=== PATIENT | female | born 1965 | race Caucasian/White ===

== ENCOUNTER 2019-12-18 08:00 | Outpatient (CLI) | payer OTHER | END 2019-12-18 23:59 | disposition home or self-care (01) | LOC: LAB.R 08:00 | PROVIDERS: ATTEND Emergency Medicine | DX: J02.9 Acute pharyngitis, unspecified (principal); J06.9 Acute upper respiratory infection, unspecified; Z20.828 Contact with and (suspected) exposure to other viral communicable diseases | CPT/HCPCS: 87070 ==

== ENCOUNTER 2020-10-05 08:00 | Outpatient (CLI) | payer OTHER ==
--- NOTE | 2020-10-05 11:21 | XRAY Report ---
PROCEDURE: Sacrum/Coccyx INDICATIONS: SACRUM COCCYX PAIN TECHNIQUE: 3 views of the sacrum and coccyx acquired. COMPARISON: 3 FINDINGS: Bones: No fractures or dislocations. No suspicious bony lesions. Soft tissues: Visualized bowel gas pattern is normal. No suspicious soft tissue densities. IMPRESSION: No visualized acute fracture or dislocation. However, occult injury cannot be excluded. Recommend anu rt interval imaging follow-up in 7-10 days as clinically indicated for additional evaluation. Soft tissue evaluation is markedly limited. If that remains of clinical concern, CT is recommended. Reviewed by: Rashmi Hernandez MD on 10/05/2020 11:20 AM PDT Approved by: Rashmi Hernandez MD on 10/05/2020 11:20 AM PDT Station ID: [id number]
== END 2020-10-05 23:59 | disposition home or self-care (01) ==
LOC: DI.S 08:00
PROVIDERS: ATTEND Physician Assistant Medical
DX: M53.3 Sacrococcygeal disorders, not elsewhere classified (principal)

== ENCOUNTER 2020-10-20 11:44 | Outpatient (CLI) | payer OTHER ==
[2020-10-20] MEDS ORDERED: IOPAMIDOL-300 100 ML VIAL ONE (12:00)
[2020-10-20] MEDS ORDERED: IOPAMIDOL-300 100 ML VIAL IVP ONE (12:13)
--- NOTE | 2020-10-20 12:28 | CT Report ---
PROCEDURE: LUMBAR SPINE W INDICATIONS: DISORDER OF SACRUM; DISORDER OF COCCYX CONTRAST: IV CONTRAST: Isovue 300 ml: 100 PO CONTRAST: *NO PO CONTRAST TECHNIQUE: After the administration of intravenous Isovue contrast, 3 mm thick sections acquired from the T12 le demetrio to the sacrum. Sagittal and coronal reformats were constructed. For radiation dose reduction, t he following was used: automated exposure control, adjustment of mA and/or kV according to patient s ize. COMPARISON: None. FINDINGS: There is normal alignment of the sacral and coccygeal segments with no evidence of fracture or sublux ation/dislocation. The sacrococcygeal anatomy is a type II based on the classification system propose d by Srinivas and Krystle. There is no significant degenerative change at the sacrococcygeal frank ction, nor are there appreciable inflammatory findings in the adjacent soft tissues. Normal lumbar vertebral body height and alignment. Prominent Schmorl's node in the superior L4 endpla te. Mild facet arthropathy from L3-L4 through L5-S1. No spinal canal or neural foraminal stenosis loida ntified. There is no suspicious lytic or blastic osseous lesion at any level. The included soft tissues are un remarkable. IMPRESSION: Normal anatomy of the coccyx and sacrococcygeal junction with no imaging explanation for coccydynia. Reviewed by: Shlomo Quinones MD on 10/20/2020 12:27 PM PDT Approved by: Shlomo Quinones MD on 10/20/2020 12:27 PM PDT Station ID: [id number]
== END 2020-10-20 11:45 | disposition home or self-care (01) ==
LOC: DI 11:44
PROVIDERS: ATTEND Physician Assistant
DX: M53.3 Sacrococcygeal disorders, not elsewhere classified (principal)
CPT/HCPCS: 72132; Q9967

== ENCOUNTER 2020-10-27 08:45 | Outpatient (CLI) | payer OTHER ==
[2020-10-27 14:28] LABS: BASOPHILS % (AUTO) 0.5 %; EOSINOPHILS # (AUTO) 0.1 10^3/uL (0.0-0.7); EOSINOPHILS % (AUTO) 2.7 %; HCT - HEMATOCRIT 43.1 % (37.0-47.0); HGB - HEMOGLOBIN 13.7 g/dL (12.0-16.0); LYMPHOCYTES # (AUTO) 1.4 10^3/uL (1.5-3.5); LYMPHOCYTES % (AUTO) 37.9 %; MEAN CORPUSCULAR HEMOGLOBIN 30.6 pg (27.0-31.0); MEAN CORPUSCULAR HGB CONC 31.8 g/dL (32.0-36.0); MEAN CORPUSCULAR VOLUME 96.2 fL (81.0-99.0); MONOCYTES # (AUTO) 0.4 10^3/uL (0.0-1.0); MONOCYTES % (AUTO) 11.4 %; NEUTROPHILS # (AUTO) 1.8 10^3/uL (1.5-6.6); NEUTROPHILS % (AUTO) 47.2 %; PLT - PLATELET COUNT 253 10^3/uL (130-450); RED BLOOD COUNT 4.48 10^6/uL (4.20-5.40); RED CELL DISTRIBUTION WIDTH 13.1 % (12.0-15.0); WHITE BLOOD COUNT 3.8 x10^3/uL (4.8-10.8)
[2020-10-27 14:51] LABS: ALBUMIN 4.8 g/dL (3.2-5.5); ALBUMIN/GLOBULIN RATIO 2.1 (1.0-2.2); ALKALINE PHOSPHATASE 43 IU/L (42-121); ALT ALANINE AMINOTRANSFERASE 26 IU/L (10-60); AST ASPARTATE AMINOTRANSFERASE 27 IU/L (10-42); BILIRUBIN,TOTAL 0.6 mg/dL (0.2-1.0); BUN - BLOOD UREA NITROGEN 20 mg/dL (6-20); CALCIUM 9.6 mg/dL (8.5-10.3); CARBON DIOXIDE - CO2 26 mmol/L (21-32); CHLORIDE 108 mmol/L (101-111); CHOLESTEROL 255 mg/dL; CREATININE 0.7 mg/dL (0.4-1.0); GFR - MDRD 86 (>89); GLUCOSE 106 mg/dL (70-100); HDL CHOLESTEROL 85 mg/dL; LDL CHOLESTEROL,CALCULATED 158 mg/dL; LDL/HDL RATIO 1.9 (<4.4); POTASSIUM 4.1 mmol/L (3.5-5.0); SODIUM 141 mmol/L (135-145); TOTAL PROTEIN 7.1 g/dL (6.7-8.2); TRIGLYCERIDES 58 mg/dL; VLDL CHOLESTEROL 12 mg/dL
[2020-10-27 14:59] LABS: THYROID STIMULATING HORMONE 1.51 uIU/mL (0.34-5.60)
== END 2020-10-27 08:46 | disposition home or self-care (01) ==
LOC: LAB.S 08:45
PROVIDERS: ATTEND Physician Assistant
DX: Z00.00 Encounter for general adult medical examination without abnormal findings (principal); Z79.899 Other long term (current) drug therapy; F33.9 Major depressive disorder, recurrent, unspecified
CPT/HCPCS: 36415; 80053; 80061; 83721; 84443; 85025

== ENCOUNTER 2021-01-12 16:22 | Outpatient (CLI) | payer OTHER ==
[2021-01-15 17:11] LABS: HIV AG/AB 4TH GEN NON-REACTIVE (NON-REACTIVE)
== END 2021-01-12 16:23 | disposition home or self-care (01) ==
LOC: LAB.S 16:22
PROVIDERS: ATTEND Registered Nurse
DX: N76.0 Acute vaginitis (principal)
CPT/HCPCS: 36415; 81599; 86592; 87389

== ENCOUNTER 2022-04-09 14:59 | Outpatient (CLI) | payer OTHER ==
--- NOTE | 2022-04-09 17:22 | Ultrasound Report ---
PROCEDURE: Pelvic Complete INDICATIONS: PELVIC PAIN TECHNIQUE: Real-time transabdominal scanning was performed of the pelvic organs, with image documentation. COMPARISON: None FINDINGS: Uterus: Hysterectomy. Ovaries: Not well seen. IMPRESSION: Limited transabdominal images were performed of the pelvis. No gross sonographic abnorma lity is identified. Hysterectomy. Consider repeat ultrasound or MRI if there is further clinical conc karey. Reviewed by: Papa Rowland MD on 04/09/2022 5:21 PM PST Approved by: Papa Rowland MD on 04/09/2022 5:21 PM PST Station ID: [id number]
== END 2022-04-09 15:00 | disposition home or self-care (01) ==
LOC: DI 14:59
PROVIDERS: ATTEND Nurse Practitioner
DX: R10.2 Pelvic and perineal pain (principal); Z90.710 Acquired absence of both cervix and uterus

== ENCOUNTER 2022-12-03 09:22 | Outpatient (CLI) | payer OTHER ==
[2022-12-03 14:41] LABS: BASOPHILS % (AUTO) 0.5 %; EOSINOPHILS # (AUTO) 0.1 10^3/uL (0.0-0.7); EOSINOPHILS % (AUTO) 1.5 %; HCT - HEMATOCRIT 42.6 % (37.0-47.0); HGB - HEMOGLOBIN 13.6 g/dL (12.0-16.0); LYMPHOCYTES # (AUTO) 1.5 10^3/uL (1.5-3.5); LYMPHOCYTES % (AUTO) 36.7 %; MEAN CORPUSCULAR HEMOGLOBIN 30.8 pg (27.0-31.0); MEAN CORPUSCULAR HGB CONC 31.9 g/dL (32.0-36.0); MEAN CORPUSCULAR VOLUME 96.4 fL (81.0-99.0); MEAN PLATELET VOLUME 11.6 fL (7.9-10.8); MONOCYTES # (AUTO) 0.4 10^3/uL (0.0-1.0); MONOCYTES % (AUTO) 11.1 %; NEUTROPHILS % (AUTO) 49.9 %; PLT - PLATELET COUNT 239 10^3/uL (130-450); RED BLOOD COUNT 4.42 10^6/uL (4.20-5.40)
[2022-12-03 15:26] LABS: ALBUMIN 4.8 g/dL (3.2-5.5); ALBUMIN/GLOBULIN RATIO 2.4 (1.0-2.2); ALKALINE PHOSPHATASE 48 IU/L (42-121); ALT ALANINE AMINOTRANSFERASE 35 IU/L (10-60); AST ASPARTATE AMINOTRANSFERASE 28 IU/L (10-42); BILIRUBIN,TOTAL 0.4 mg/dL (0.2-1.0); BUN - BLOOD UREA NITROGEN 15 mg/dL (6-20); CARBON DIOXIDE - CO2 30 mmol/L (21-32); CHLORIDE 107 mmol/L (101-111); CHOL/HDL RATIO 2.6 (<4.4); CHOLESTEROL 227 mg/dL; CREATININE 0.7 mg/dL (0.6-1.3); GFR - MDRD 86 (>89); GLUCOSE 118 mg/dL (74-104); HDL CHOLESTEROL 88 mg/dL; LDL CHOLESTEROL,CALCULATED 129 mg/dL; LDL/HDL RATIO 1.5 (<4.4); POTASSIUM 4.3 mmol/L (3.5-4.5); SODIUM 141 mmol/L (135-145); TOTAL PROTEIN 6.8 g/dL (6.4-8.9); TRIGLYCERIDES 50 mg/dL (48-352); VLDL CHOLESTEROL 10 mg/dL
[2022-12-03 15:30] LABS: THYROID STIMULATING HORMONE 1.34 uIU/mL (0.34-5.60)
== END 2022-12-03 09:23 | disposition home or self-care (01) ==
LOC: LAB.S 09:22
PROVIDERS: ATTEND Internal Medicine
DX: Z00.00 Encounter for general adult medical examination without abnormal findings (principal); Z79.899 Other long term (current) drug therapy; F33.9 Major depressive disorder, recurrent, unspecified; M53.3 Sacrococcygeal disorders, not elsewhere classified
CPT/HCPCS: 36415; 80053; 80061; 82607; 83721; 84443; 85025

== ENCOUNTER 2023-04-29 12:28 | Outpatient (CLI) | payer OTHER ==
[2023-04-29 16:22] LABS: CHOL/HDL RATIO 2.6 (<4.4); CHOLESTEROL 208 mg/dL; HDL CHOLESTEROL 79 mg/dL; LDL CHOLESTEROL,CALCULATED 119 mg/dL; LDL/HDL RATIO 1.5 (<4.4); TRIGLYCERIDES 49 mg/dL (48-352); VLDL CHOLESTEROL 10 mg/dL
== END 2023-04-29 12:29 | disposition home or self-care (01) ==
LOC: LAB.S 12:28
PROVIDERS: ATTEND Registered Nurse
DX: Z13.220 Encounter for screening for lipoid disorders (principal)
CPT/HCPCS: 36415; 80061; 83721

== ENCOUNTER 2023-05-14 13:09 | Outpatient (CLI) | payer OTHER ==
--- NOTE | 2023-05-23 09:44 | Mammography Report ---
BILATERAL DIGITAL SCREENING MAMMOGRAM 3D/2D WITH EXAGGERATED CC: 05/14/2023 CLINICAL: Routine screening. Comparison is made to exams dated: 08/04/2017 mammogram, 03/28/2015 mammogram, and 03/23/2014 mammogram - [facility]. Both breasts are heterogeneously dense, which may obscure small masses (category c / 51-75% glandular tissue). No significant masses, calcifications, or other findings are seen in either breast. There has been no significant interval change. IMPRESSION: NEGATIVE There is no mammographic evidence of malignancy. A 1 year screening mammogram is recommended. Based on the Tyrer Cuzick model (a risk assessment model) the patient's lifetime risk is 13.4% and he r 10 year risk is 5.5%. According to the ACR, ACS, and NCCN guidelines, an annual breast MRI exam jasmyne ng with mammogram is recommended if the patient's lifetime risk is 20% or greater. This exam was interpreted at Station ID: [id number]. NOTE: For mammograms, a report in lay terms will be sent to the patient. Approximately 15% of breast malignancies will not be visualized mammographically. In the management of a palpable breast mass, a negative mammogram must not discourage biopsy of a clinically suspicious lesion. Electronically Signed By: Tad spivey/delta:05/22/2023 10:57:06 letter sent: No_Letter ACR BI-RADS Category 1: Negative 3341F PARENCHYMAL PATTERN: (D) - The breast(s) demonstrate(s) heterogeneously dense fibroglandular shirlene winchester. BI-RADS CATEGORY: (1) - 1 Mammogram [id number] 1 year screening LATERALITY: (B)
== END 2023-05-14 13:10 | disposition home or self-care (01) ==
LOC: DI.S 13:09
PROVIDERS: ATTEND Registered Nurse
DX: Z12.31 Encounter for screening mammogram for malignant neoplasm of breast (principal); R92.333 Mammographic heterogeneous density, bilateral breasts

== ENCOUNTER 2023-06-25 14:21 | Outpatient (CLI) | payer OTHER ==
--- NOTE | 2023-06-25 20:14 | DEXA Report ---
PROCEDURE: Dexa Spine and/or Hip INDICATIONS: POST MENOPAUSAL TECHNIQUE: Dual energy x-ray absorptiometry (DEXA) was performed in the regions detailed below. COMPARISON: None. FINDINGS: Lumbar Spine: Bone Mineral Density 0.993 g/cm/cm,T score -1.6. Osteopenia Left Femoral Neck: Bone Mineral Density 0.691 g/cm/cm, T score -2.5. Osteoporosis Left Total Hip: Bone Mineral Density 0.622 g/cm/cm,T score -3.1. Osteoporosis (T score greater or equal to -1.0: NORMAL) (T score from -1.1 to -2.4: OSTEOPENIA) (T score less than or equal to -2.5 to: OSTEOPOROSIS) IMPRESSION: Osteoporosis Patients with diagnosis of osteoporosis or osteopenia should have regular bone mineral density assess ment. For those eligible for Medicare, routine testing is allowed once every 2 years. Testing frequ ency can be increased for patients who have rapidly progressing disease or for those who are receivin g medical therapy to restore bone mass. Reviewed by: Moses Corbin MD on 06/25/2023 7:13 PM ROBERT Approved by: Moses Corbin MD on 06/25/2023 7:13 PM ROBERT Station ID: [id number]
== END 2023-06-25 14:22 | disposition home or self-care (01) ==
LOC: DI 14:21
PROVIDERS: ATTEND Registered Nurse
DX: M81.0 Age-related osteoporosis without current pathological fracture (principal); Z78.0 Asymptomatic menopausal state

== ENCOUNTER 2023-07-31 08:20 | Outpatient (CLI) | payer OTHER ==
[2023-07-31 14:47] LABS: BASOPHILS % (AUTO) 0.3 %; EOSINOPHILS # (AUTO) 0.1 10^3/uL (0.0-0.7); EOSINOPHILS % (AUTO) 1.4 %; HGB - HEMOGLOBIN 13.1 g/dL (12.0-16.0); LYMPHOCYTES # (AUTO) 1.2 10^3/uL (1.5-3.5); LYMPHOCYTES % (AUTO) 32.6 %; MEAN CORPUSCULAR HEMOGLOBIN 30.9 pg (27.0-31.0); MEAN CORPUSCULAR HGB CONC 32.8 g/dL (32.0-36.0); MEAN CORPUSCULAR VOLUME 94.3 fL (81.0-99.0); MEAN PLATELET VOLUME 11.6 fL (7.9-10.8); MONOCYTES # (AUTO) 0.4 10^3/uL (0.0-1.0); MONOCYTES % (AUTO) 10.5 %; NEUTROPHILS # (AUTO) 1.9 10^3/uL (1.5-6.6); NEUTROPHILS % (AUTO) 54.6 %; PLT - PLATELET COUNT 218 10^3/uL (130-450); RED BLOOD COUNT 4.24 10^6/uL (4.20-5.40); WHITE BLOOD COUNT 3.5 x10^3/uL (4.8-10.8)
[2023-07-31 15:24] LABS: ALBUMIN 4.6 g/dL (3.2-5.5); ALBUMIN/GLOBULIN RATIO 2.2 (1.0-2.2); ALKALINE PHOSPHATASE 43 IU/L (42-121); ALT ALANINE AMINOTRANSFERASE 21 IU/L (10-60); AST ASPARTATE AMINOTRANSFERASE 21 IU/L (10-42); BILIRUBIN,TOTAL 0.6 mg/dL (0.2-1.0); BUN - BLOOD UREA NITROGEN 20 mg/dL (6-20); CARBON DIOXIDE - CO2 25 mmol/L (21-32); CHLORIDE 108 mmol/L (101-111); CHOL/HDL RATIO 2.8 (<4.4); CHOLESTEROL 218 mg/dL; CREATININE 0.7 mg/dL (0.6-1.3); GFR - MDRD 85 (>89); GLUCOSE 95 mg/dL (74-104); HDL CHOLESTEROL 77 mg/dL; LDL CHOLESTEROL,CALCULATED 130 mg/dL; LDL/HDL RATIO 1.7 (<4.4); POTASSIUM 3.9 mmol/L (3.5-4.5); SODIUM 141 mmol/L (135-145); TOTAL PROTEIN 6.7 g/dL (6.4-8.9); TRIGLYCERIDES 54 mg/dL (48-352); VLDL CHOLESTEROL 11 mg/dL
[2023-07-31 15:39] LABS: PROLACTIN 7.14 ng/mL
[2023-08-01 04:09] LABS: IMMUNOGLOBULIN A (IGA) 51 mg/dL (87-352); IMMUNOGLOBULIN G (IGG) 521 mg/dL (586-1602); IMMUNOGLOBULIN M (IGM) 36 mg/dL (26-217)
[2023-08-01 07:10] LABS: VITAMIN D 25-HYDROXY 58.5 ng/mL (30.0-100.0)
[2023-08-01 08:12] LABS: ESTRADIOL <5.0 pg/mL (0.0-54.7); PROGESTERONE 0.5 ng/mL (.)
[2023-08-01 20:08] LABS: T-TRANSGLUTAMINASE (TTG) IGA <2 U/mL (0-3)
== END 2023-07-31 08:21 | disposition home or self-care (01) ==
LOC: LAB.S 08:20
PROVIDERS: ATTEND Registered Nurse
DX: M81.0 Age-related osteoporosis without current pathological fracture (principal); Z13.228 Encounter for screening for other metabolic disorders; Z13.220 Encounter for screening for lipoid disorders; Z13.29 Encounter for screening for other suspected endocrine disorder; Z13.0 Encounter for screening for diseases of the blood and blood-forming organs and certain disorders involving the immune mechanism
CPT/HCPCS: 36415; 80053; 80061; 82306; 82670; 82677; 82784; 83001; 83002; 83721; 83970; 84144; 84146; 84270; 84402; 84403; 84443; 85025; 86364

== ENCOUNTER 2023-08-01 08:00 | Outpatient (CLI) | payer OTHER ==
[2023-08-03 06:08] LABS: CALCIUM URINE 10.1 mg/dL (Not Estab.)
== END 2023-08-01 23:59 | disposition home or self-care (01) ==
LOC: LAB.S 08:00
PROVIDERS: ATTEND Registered Nurse
DX: M81.0 Age-related osteoporosis without current pathological fracture (principal)
CPT/HCPCS: 82340

== ENCOUNTER 2023-09-10 11:46 | Outpatient (CLI) | payer OTHER ==
[2023-09-10 15:02] LABS: BASOPHILS % (AUTO) 0.4 %; EOSINOPHILS % (AUTO) 0.6 %; HCT - HEMATOCRIT 41.8 % (37.0-47.0); HGB - HEMOGLOBIN 13.5 g/dL (12.0-16.0); LYMPHOCYTES % (AUTO) 20.3 %; MEAN CORPUSCULAR HGB CONC 32.3 g/dL (32.0-36.0); MEAN CORPUSCULAR VOLUME 95.9 fL (81.0-99.0); MEAN PLATELET VOLUME 11.7 fL (7.9-10.8); MONOCYTES # (AUTO) 0.5 10^3/uL (0.0-1.0); MONOCYTES % (AUTO) 10.7 %; NEUTROPHILS # (AUTO) 3.3 10^3/uL (1.5-6.6); NEUTROPHILS % (AUTO) 67.8 %; PLT - PLATELET COUNT 220 10^3/uL (130-450); RED BLOOD COUNT 4.36 10^6/uL (4.20-5.40); RED CELL DISTRIBUTION WIDTH 13.1 % (12.0-15.0); WHITE BLOOD COUNT 4.9 x10^3/uL (4.8-10.8)
[2023-09-10 16:03] LABS: CALCIUM 10.1 mg/dL (8.5-10.3); POTASSIUM 4.1 mmol/L (3.5-4.5); THYROID STIMULATING HORMONE 1.55 uIU/mL (0.34-5.60)
[2023-09-10 16:10] LABS: CREATININE 0.7 mg/dL (0.6-1.3)
== END 2023-09-10 11:47 | disposition home or self-care (01) ==
LOC: LAB.S 11:46
PROVIDERS: ATTEND Emergency Medicine
DX: R06.00 Dyspnea, unspecified (principal); Z13.220 Encounter for screening for lipoid disorders
CPT/HCPCS: 36415; 80048; 83735; 84443; 85025

== ENCOUNTER 2023-10-31 14:36 | Outpatient (CLI) | payer OTHER ==
--- NOTE | 2023-10-31 18:00 | XRAY Report ---
PROCEDURE: Cervical Spine w/Flex/Ext 6+V INDICATIONS: CERVICALGIA TECHNIQUE: 7 views of the cervical spine were acquired. COMPARISON: None. FINDINGS: Bones: No fractures or dislocations to the C7 level. No suspicious bony lesions. There is normal r oksana of motion between flexion and extension, with preserved normal bony alignment. Moderate disc hei ght loss at C6-7. Mild disc height loss at remaining levels. Diffuse facet arthrosis. Suboptimal eval uation of the right neural foramen. Left neural foramen are patent. Soft tissues: Prevertebral soft tissues are normal in thickness. IMPRESSION: Mild to moderate, multilevel degenerative disc disease and diffuse facet arthrosis. Reviewed by: George Watson MD on 10/31/2023 5:58 PM PDT Approved by: George Watson MD on 10/31/2023 5:58 PM PDT Station ID: [id number]
== END 2023-10-31 14:37 | disposition home or self-care (01) ==
LOC: DI.S 14:36
PROVIDERS: ATTEND Registered Nurse
DX: M47.812 Spondylosis without myelopathy or radiculopathy, cervical region (principal); M50.323 Other cervical disc degeneration at C6-C7 level

== ENCOUNTER 2023-12-01 13:49 | Outpatient (CLI) | payer OTHER | END 2023-12-01 13:50 | disposition home or self-care (01) | LOC: DI 13:49 | PROVIDERS: ATTEND Registered Nurse | DX: R00.2 Palpitations (principal); R06.00 Dyspnea, unspecified | CPT/HCPCS: 93307 ==